=== PATIENT | female | born 1945 | race Caucasian/White ===

== ENCOUNTER 2021-10-12 16:14 | Emergency (ER) | payer MEDICARE ==
[2021-10-12] MEDS ORDERED: Diphtheria,Pertussis(Acell),Tetanus Vaccine 0.5 ML Syringe IM ONE (16:29)
[2021-10-12] MEDS ORDERED: Lidocaine 1% with EPINEPHrine 1:100,000 10 ML MDV INJECT ONE (16:29)
[2021-10-12] MEDS ORDERED: Ondansetron 4 MG/2 ML SDV IVPUSH ONE (17:12)
[2021-10-12] MEDS ORDERED: Morphine 4 MG/ML VIAL IVPUSH ONE (17:12)
== END 2021-10-12 18:49 | disposition home or self-care (01) ==
LOC: MW.ED 16:14
DX: S52.502A Unspecified fracture of the lower end of left radius, initial encounter for closed fracture (principal); S82.002A Unspecified fracture of left patella, initial encounter for closed fracture; S01.81XA Laceration without foreign body of other part of head, initial encounter; Z23 Encounter for immunization; Z88.0 Allergy status to penicillin; Z88.8 Allergy status to other drugs, medicaments and biological substances; W01.0XXA Fall on same level from slipping, tripping and stumbling without subsequent striking against object, initial encounter
CPT/HCPCS: 12013; 29125; 70450; 72125; 73110; 73560; 90471; 90715; 96374; 96375; 99284; J2270; J2405; 99285